=== PATIENT | male | born 1995 | race Caucasian/White ===

== ENCOUNTER 2020-11-15 13:23 | Emergency (ER) | payer MEDICAID ==
[~2020-11-15] VITALS: Ht 167.6 cm; Wt 77.3 kg
[2020-11-15 14:22] VITALS: BP 126/88
[2020-11-15] MEDS ORDERED: PENI500T2 PO (14:28)
[2020-11-15] MEDS ORDERED: HYDR-3972 PO (14:28)
== END 2020-11-15 15:05 | disposition home or self-care (01) ==
LOC: ER 13:23
DX: K02.9 Dental caries, unspecified (principal); K08.89 Other specified disorders of teeth and supporting structures; Z56.0 Unemployment, unspecified; Z79.2 Long term (current) use of antibiotics; Z79.899 Other long term (current) drug therapy
CPT/HCPCS: 99283